=== PATIENT | male | born 1990 | race Caucasian/White ===

== ENCOUNTER → 2016-09-18 | Outpatient (CLI) | payer OTHER ==
--- NOTE | 2016-09-18 14:52 | KCIC ---
Duplex sonography of the testicles and scrotum Clinical indications: 2 right-sided scrotal lumps. FINDINGS: Duplex sonography of the scrotal contents of both testicles was performed including grayscale evaluation and color flow and waveform spectral analysis. Longitudinal and AP and transverse dimensions of the right testicle are 5.1 cm and 2.4 cm and 3.6 cm respectively. The longitudinal and AP and transverse dimensions of the left testicle are 4.4 cm and 2.3 cm and 4.4 cm respectively. No testicular mass is seen. Symmetrical Doppler flow is seen within the testicles. The epididymis is normal on both sides. Small hydroceles are seen bilaterally. In the area of the palpable lump inferiorly, a cutaneous hypoechoic nodule is seen within the scrotum measuring 6 mm in greatest dimension. In the area of the palpable lump superiorly, a cutaneous hypoechoic nodule is seen measuring 6 mm in greatest dimension. Findings are consistent with sebaceous cyst. IMPRESSION: 2 palpable lumps correspond to 2 small 6 mm sebaceous cysts. Normal testicular sonogram without torsion or mass. Electronically signed by: Hugo Meraz MD (09/18/2016 2:48 PM) [id number]
== END | disposition home or self-care (01) ==
LOC: KCIC US 12:17
PROVIDERS: ATTEND Nurse Practitioner Family
DX: N50.811 Right testicular pain (principal); N50.812 Left testicular pain
CPT/HCPCS: 76870

== ENCOUNTER 2017-04-21 09:52 | Emergency (ER) | payer OTHER | END 2017-04-21 11:59 | disposition home or self-care (01) | LOC: ER 09:52 | DX: M54.2 Cervicalgia (principal); V49.9XXA Car occupant (driver) (passenger) injured in unspecified traffic accident, initial encounter; Y93.89 Activity, other specified; Y99.8 Other external cause status; Y92.488 Other paved roadways as the place of occurrence of the external cause | CPT/HCPCS: 70450; 72125; 99284-25 ==